=== PATIENT | female | born 1975 | race Hispanic/Latino ===

== ENCOUNTER 2017-04-06 09:05 | Inpatient (IN) | payer OTHER ==
[~2017-04-06] VITALS: Ht 149.9 cm
[2017-04-06] VITALS (29 sets, daily range): BP systolic 127–172; BP diastolic 46–96
[2017-04-06 09:37] LABS: URINE BLOOD DIPSTICK LARGE (NEGATIVE); URINE COLOR YELLOW; URINE GLUCOSE - DIPSTICK NEGATIVE (NEGATIVE); URINE KETONE NEGATIVE (NEGATIVE); URINE LEUK ESTERASE TRACE (NEGATIVE); URINE NITRITE - DIPSTICK NEGATIVE (Negative); URINE PH 6.5 (4.5-8.0); URINE PROTEIN - DIPSTICK 30 mg/dL (NEG-TRACE); URINE UROBILINOGEN - DIPSTICK 0.2 E.U./dL (0.2)
[2017-04-06 09:44] LABS: URINE BILIRUBIN - DIPSTICK SMALL (NEGATIVE); URINE CLARITY SLIGHT CLOUDY
[2017-04-06 09:45] LABS: BARBITURATES NEGATIVE (NEGATIVE); COCAINE NEGATIVE (NEGATIVE); METHADONE NEGATIVE (NEGATIVE); OXCYCODONE NEGATIVE (NEGATIVE); TETRAHYDROCANNABIONOL NEGATIVE (NEGATIVE); TRICYLIC ANTIDEPRESSANTS NEGATIVE (NEGATIVE); URINE BACTERIA FEW hpf; URINE EPITHELIAL CELLS MODERATE EPI/hpf (0-FEW); URINE RBC 25-50 RBC/hpf (0-5); URINE WBC 0-2 WBC/hpf (0-5)
[2017-04-06] MEDS ORDERED: PRENATA3 PO (10:58)
[2017-04-06] MEDS ORDERED: FERR SULFATE325 MG PO (11:00)
[2017-04-06] MEDS ORDERED: LEVOTHYROXIN88 MC1 PO (11:00)
[2017-04-06 11:12] LABS: HEMATOCRIT 35.7 % (37.0-47.0); IMMATURE GRANULOCYTES 0.6 % (0.0-1.0); MEAN CELL VOLUME 78.8 fL CALC (80.0-100.0); MEAN CORPUSCULAR HGB 26.5 pG CALC (26.0-32.0); MEAN CORPUSCULAR HGB CONC 33.6 g/L CALC (32.0-36.0); NEUT# 8.2 thou/uL (2.00-7.15); RED BLOOD COUNT 4.53 mill/uL (4.20-5.60); RED CELL DISTRI WIDTH 16.8 % (11.5-15.5)
[2017-04-06 11:28] LABS: ALBUMIN 3.4 g/dL (3.2-5.0); ALKALINE PHOSPHATASE 156 u/l (38-126); ANION GAP 15 (6-22 (CALC)); BILIRUBIN, TOTAL 0.5 mg/dL (0.0-1.4); BUN 6 mg/dL (7-17); BUN/CREATININE RATIO 14 (12-20 (CALC)); CALCIUM 8.7 mg/dL (8.4-10.2); CARBON DIOXIDE 18 mmol/l (22-30); CHLORIDE 106 mmol/l (95-108); CREATININE 0.5 mg/dL (0.5-1.0); GFR > 60 ML/MIN (>=60 (CALC)); GFR FOR AFR.AMER. > 60 ML/MIN (>=60 (CALC)); GLUCOSE 71 mg/dL (65-105); SGOT/AST 35 u/l (14-36); SGPT/ALT 34 u/l (9-52); SODIUM 135 mmol/l (137-146); TOTAL PROTEIN 6.7 g/dL (6.3-8.2)
[2017-04-07 04:00] VITALS: BP 117/53
[2017-04-07 06:28] LABS: HEMATOCRIT 36.1 % (37.0-47.0); HEMOGLOBIN 12.1 g/dl (12.0-16.0); IMMATURE GRANULOCYTES 0.6 % (0.0-1.0); MEAN CELL VOLUME 79.2 fL CALC (80.0-100.0); MEAN CORPUSCULAR HGB 26.5 pG CALC (26.0-32.0); MEAN CORPUSCULAR HGB CONC 33.5 g/L CALC (32.0-36.0); NEUT# 7.39 thou/uL (2.00-7.15); RED BLOOD COUNT 4.56 mill/uL (4.20-5.60); RED CELL DISTRI WIDTH 16.9 % (11.5-15.5)
[2017-04-07 16:30] VITALS: BP 132/59
[2017-04-07 21:00] VITALS: BP 124/64
[2017-04-08 05:45] VITALS: BP 138/80
[2017-04-08] MEDS ORDERED: IBUPROFEN600 MG PO (08:09)
== END 2017-04-08 10:25 | disposition home or self-care (01) | DRG 775 ==
LOC: OB 09:05 → OBOP 09:05 → EDSTATUS 09:06 → OBOP 12:14 → OB 12:15
PROVIDERS: ADMIT Obstetrics & Gynecology; ATTEND Obstetrics & Gynecology
PROC: 10E0XZZ Delivery of Products of Conception, External Approach (ICD-10-PCS; principal; 2017-04-06)
DX: O24.420 Gestational diabetes mellitus in childbirth, diet controlled (principal); O77.0 Labor and delivery complicated by meconium in amniotic fluid; Z37.0 Single live birth; Z3A.40 40 weeks gestation of pregnancy

== ENCOUNTER 2019-12-29 07:50 | Day surgery (SDC) | payer SELFPAY ==
[~2019-12-29] VITALS: Ht 157.5 cm; Wt 87.1 kg
[~2019-12-29 07:50] MED LIST: BLOOD PRESSURE; FERR SULFATE325 MG PO; FLUOXETINE10 M2 PO; FLUOXETINE20 MG PO; IBUPROFEN600 MG PO; LEVOTHYROXIN75 MCG PO; LEVOTHYROXIN88 MC1 PO; NAPROXEN EC500 MG PO; PRENATA3 PO
[2019-12-29 08:28] VITALS: BP 121/59
--- NOTE | 2020-01-05 13:24 | NUR ---
PATIENT WAS SCHEDULED FOR COLONOSCOPY ON 12/29/19. HCG WAS POSITIVE. PROCEDURE WAS CANCELLED.
== END 2019-12-29 08:55 | disposition home or self-care (01) | DRG 392 ==
LOC: ORM 07:50
PROVIDERS: ATTEND Surgery
DX: R10.32 Left lower quadrant pain (principal); D64.9 Anemia, unspecified; I10 Essential (primary) hypertension; Z53.09 Procedure and treatment not carried out because of other contraindication; Z11.59 Encounter for screening for other viral diseases